=== PATIENT | male | born 1970 | race Caucasian/White ===

== ENCOUNTER 2016-06-17 01:37 | Emergency (ER) | payer OTHER | END 2016-06-17 03:30 | disposition left against medical advice (07) | LOC: ER1 01:37 | DX: R05 Cough (principal); M79.1 Myalgia; I10 Essential (primary) hypertension; E11.9 Type 2 diabetes mellitus without complications; Z85.89 Personal history of malignant neoplasm of other organs and systems; Z79.84 Long term (current) use of oral hypoglycemic drugs; Z79.4 Long term (current) use of insulin; Z79.899 Other long term (current) drug therapy | CPT/HCPCS: 99283 ==

== ENCOUNTER → 2016-09-07 | Outpatient (CLI) | payer OTHER | LOC: RAD 16:46 | DX: J18.8 Other pneumonia, unspecified organism (principal) | CPT/HCPCS: 71020 ==

== ENCOUNTER 2016-09-18 16:04 | Emergency (ER) | payer OTHER ==
[2016-09-18 18:51] LABS: HEMOGLOBIN 12.5 gm/dl (14.0-17.5); RED BLOOD COUNT 3.73 M/UL (4.20-5.50); WHITE BLOOD COUNT 9.7 K/UL (4.5-11.0)
== END 2016-09-18 21:15 | disposition home or self-care (01) ==
LOC: ER1 16:04
PROVIDERS: Family Medicine
DX: R20.0 Anesthesia of skin (principal); E11.649 Type 2 diabetes mellitus with hypoglycemia without coma; Z79.84 Long term (current) use of oral hypoglycemic drugs; Z79.899 Other long term (current) drug therapy
CPT/HCPCS: 36415; 70450; 71010; 80053; 82550; 82553; 82962; 83874; 84484; 85025; 93005; 99284

== ENCOUNTER 2020-04-20 16:06 | Emergency (ER) | payer OTHER ==
[~2020-04-20 16:06] MED LIST: ALPRAZOLAM0.5 MG PO; ARTANE 2MG TABLE2 MG PO; ASPIR 8181 MG PO; AUGMENTIN 875-1 EACH PO; COMBIVENT0.074 GM/I INH; DEXILANT60 MG PO; GLUCOTROL 10 MG10 MG PO; K-DUR TAB 10 M10 MEQ PO; LASIX40 MG PO; LEVEMIR100 UNIT/1 SQ; LOPRESSOR 25 MG25 MG PO; NEURONTIN 400400 MG PO; NEURONTIN400 MG PO; NEXIUM40 MG PO; PLETAL 100 MG100 MG PO; PREDNISONE 50 M50 MG PO; PRINIVIL10 MG PO; ROXICODONE TAB 55 MG PO; SYNTHROID75 MCG PO; TESSALON PERLE100 MG PO; TRESIBA FL100 UNIT/1 SQ; TRICOR145 MG PO; VIBRAMYCIN100 MG PO; VITAMIN D350000 UNIT PO; ZANTAC150 MG PO; ZOCOR80 MG PO; ZOFRAN4 MG PO
[2020-04-20 17:48] LABS: HEMOGLOBIN 14.1 gm/dl (14.0-17.5); RED BLOOD COUNT 4.03 M/UL (4.20-5.50)
[2020-04-20 18:25] LABS: BUN/CREATININE RATIO 13 (0-10)
[2020-04-20] MEDS ORDERED: AMOXICILLIN500 M1 PO (19:44)
[2020-04-20] MEDS ORDERED: ZITHROMAX250 MG PO (19:44)
[2020-04-20] MEDS ORDERED: PREDNISONE 20 M20 MG PO (19:44)
== END 2020-04-20 20:09 | disposition home or self-care (01) ==
LOC: ER1 16:06
PROVIDERS: Emergency Medicine
DX: J18.9 Pneumonia, unspecified organism (principal); J44.9 Chronic obstructive pulmonary disease, unspecified; I50.9 Heart failure, unspecified; Z20.822 Contact with and (suspected) exposure to COVID-19
CPT/HCPCS: 71045; 80053; 82550; 82553; 83874; 83880; 84484; 85025; 93005; 96374; 99285; J1100; U0002

== ENCOUNTER 2020-04-29 20:16 | Emergency (ER) | payer OTHER ==
[~2020-04-29 20:16] MED LIST changes: +AMOXICILLIN500 M1 PO; +PREDNISONE 20 M20 MG PO; +ZITHROMAX250 MG PO
== END 2020-04-29 22:15 | disposition left against medical advice (07) ==
LOC: ER1 20:16
DX: R05 Cough (principal); R09.89 Other specified symptoms and signs involving the circulatory and respiratory systems; Z53.21 Procedure and treatment not carried out due to patient leaving prior to being seen by health care provider

== ENCOUNTER 2020-05-30 01:31 | Emergency (ER) | payer OTHER ==
[2020-05-30 02:16] LABS: HEMOGLOBIN 15.9 gm/dl (14.0-17.5); RED BLOOD COUNT 4.62 M/UL (4.20-5.50); WHITE BLOOD COUNT 11.8 K/UL (4.5-11.0)
== END 2020-05-30 06:55 | disposition home or self-care (01) ==
LOC: ER1 01:31
PROVIDERS: Family Medicine
DX: E86.0 Dehydration (principal); M54.2 Cervicalgia; I73.9 Peripheral vascular disease, unspecified; Z85.89 Personal history of malignant neoplasm of other organs and systems
CPT/HCPCS: 36415; 70450; 71045; 72125; 80053; 85025; 93005; 96374; 96375; 99284; J2270; J2405

== ENCOUNTER 2020-06-26 21:48 | Emergency (ER) | payer OTHER | END 2020-06-27 01:36 | disposition home or self-care (01) | LOC: ER1 21:48 | DX: H10.33 Unspecified acute conjunctivitis, bilateral (principal); E11.9 Type 2 diabetes mellitus without complications; I10 Essential (primary) hypertension; E78.5 Hyperlipidemia, unspecified; F17.210 Nicotine dependence, cigarettes, uncomplicated; Z23 Encounter for immunization | CPT/HCPCS: 90471; 90715; 99282 ==

== ENCOUNTER 2020-07-29 23:33 | Emergency (ER) | payer OTHER | END 2020-07-30 02:50 | disposition home or self-care (01) | LOC: ER1 23:33 | DX: Z20.822 Contact with and (suspected) exposure to COVID-19 (principal); I25.10 Atherosclerotic heart disease of native coronary artery without angina pectoris; J44.9 Chronic obstructive pulmonary disease, unspecified; F17.210 Nicotine dependence, cigarettes, uncomplicated; E78.5 Hyperlipidemia, unspecified; Z90.89 Acquired absence of other organs | CPT/HCPCS: 99283; U0002 ==

== ENCOUNTER 2020-08-20 02:53 | Emergency (ER) | payer OTHER ==
[2020-08-20] MEDS ORDERED: CEPHALEXIN500 MG PO (06:13)
== END 2020-08-20 06:52 | disposition home or self-care (01) ==
LOC: ER1 02:53
DX: S90.414A Abrasion, right lesser toe(s), initial encounter (principal); I10 Essential (primary) hypertension; E11.9 Type 2 diabetes mellitus without complications; I25.10 Atherosclerotic heart disease of native coronary artery without angina pectoris; Z90.89 Acquired absence of other organs; Z79.01 Long term (current) use of anticoagulants; F17.210 Nicotine dependence, cigarettes, uncomplicated; X58.XXXA Exposure to other specified factors, initial encounter
CPT/HCPCS: 99283

== ENCOUNTER 2020-09-18 22:18 | Emergency (ER) | payer OTHER ==
[~2020-09-18 22:18] MED LIST changes: +CEPHALEXIN500 MG PO
[2020-09-18 23:46] LABS: HEMOGLOBIN 14.2 gm/dl (14.0-17.5); RED BLOOD COUNT 4.14 M/UL (4.20-5.50); WHITE BLOOD COUNT 9.4 K/UL (4.5-11.0)
[2020-09-19 00:08] LABS: BUN/CREATININE RATIO 18 (0-10)
[2020-09-19] MEDS ORDERED: PREDNISONE20 MG PO (03:30)
[2020-09-19] MEDS ORDERED: ZITHROMAX250 MG PO (03:30)
== END 2020-09-19 05:01 | disposition home or self-care (01) ==
LOC: ER1 22:18
PROVIDERS: Physician Assistant
DX: R05 Cough (principal); R06.00 Dyspnea, unspecified; E78.5 Hyperlipidemia, unspecified; E11.51 Type 2 diabetes mellitus with diabetic peripheral angiopathy without gangrene; I10 Essential (primary) hypertension; Z90.89 Acquired absence of other organs
CPT/HCPCS: 71045; 80053; 82550; 82553; 83874; 83880; 84484; 85025; 85610; 85730; 93005; 96374; 99285; J2930

== ENCOUNTER 2020-10-04 21:06 | Emergency (ER) | payer OTHER ==
[~2020-10-04 21:06] MED LIST changes: +PREDNISONE20 MG PO
[2020-10-04 21:27] LABS: HEMOGLOBIN 14.4 gm/dl (14.0-17.5); RED BLOOD COUNT 4.19 M/UL (4.20-5.50); WHITE BLOOD COUNT 11.6 K/UL (4.5-11.0)
[2020-10-04 22:00] LABS: BUN/CREATININE RATIO 17 (0-10)
== END 2020-10-04 23:01 | disposition short-term general hospital (02) ==
LOC: ER1 21:06
PROVIDERS: Emergency Medicine
DX: I63.9 Cerebral infarction, unspecified (principal); R29.705 NIHSS score 5; I10 Essential (primary) hypertension; E11.9 Type 2 diabetes mellitus without complications; J44.9 Chronic obstructive pulmonary disease, unspecified; F17.200 Nicotine dependence, unspecified, uncomplicated; Z20.822 Contact with and (suspected) exposure to COVID-19
CPT/HCPCS: 70450; 70496; 70498; 71045; 80053; 81001; 82550; 82553; 82962; 83690; 83735; 83874; 83880; 84484; 85025; 85610; 85730; 93005; 96374; 99285; J2997; Q9967; U0002

== ENCOUNTER 2020-11-13 22:16 | Emergency (ER) | payer OTHER | END 2020-11-14 06:36 | disposition home or self-care (01) | LOC: ER1 22:16 | DX: K94.23 Gastrostomy malfunction (principal); J44.9 Chronic obstructive pulmonary disease, unspecified; I25.10 Atherosclerotic heart disease of native coronary artery without angina pectoris; I25.2 Old myocardial infarction; Z95.1 Presence of aortocoronary bypass graft | CPT/HCPCS: 43752; 71045; 99283 ==

== ENCOUNTER 2020-11-18 14:27 | Emergency (ER) | payer OTHER ==
[~2020-11-18] VITALS: Ht 175.3 cm; Wt 76.2 kg
[2020-11-18 15:01] LABS: HEMOGLOBIN 9.2 gm/dl (14.0-17.5); RED BLOOD COUNT 2.91 M/UL (4.20-5.50); WHITE BLOOD COUNT 11.7 K/UL (4.5-11.0)
[2020-11-18 15:28] LABS: BUN/CREATININE RATIO 19 (0-10)
== END 2020-11-18 21:32 | disposition home or self-care (01) ==
LOC: ER1 14:27
DX: J95.89 Other postprocedural complications and disorders of respiratory system, not elsewhere classified (principal); Z20.822 Contact with and (suspected) exposure to COVID-19
CPT/HCPCS: 36600; 71045; 80053; 82550; 82553; 82803; 83874; 84484; 85025; 87040; 93005; 96374; 96375; 96376; 99285; J3370; J7030; J7050; J7070; Q9967; U0002

== ENCOUNTER → 2021-01-03 | Outpatient (CLI) | payer OTHER | LOC: RAD 17:42 | DX: J40 Bronchitis, not specified as acute or chronic (principal); R09.89 Other specified symptoms and signs involving the circulatory and respiratory systems | CPT/HCPCS: 71046 ==

== ENCOUNTER 2021-04-21 18:33 | Emergency (ER) | payer OTHER | END 2021-04-21 20:50 | disposition home or self-care (01) | LOC: ER1 18:33 | DX: B34.9 Viral infection, unspecified (principal); Z20.822 Contact with and (suspected) exposure to COVID-19; I11.9 Hypertensive heart disease without heart failure; E78.5 Hyperlipidemia, unspecified; J44.9 Chronic obstructive pulmonary disease, unspecified; Z90.49 Acquired absence of other specified parts of digestive tract; E11.9 Type 2 diabetes mellitus without complications; Z87.891 Personal history of nicotine dependence | CPT/HCPCS: 0240U; 99283 ==

== ENCOUNTER 2021-07-16 14:56 | Emergency (ER) | payer OTHER ==
[2021-07-16] MEDS ORDERED: CYCLOBENZAPRINE10 MG PO (19:46)
== END 2021-07-16 20:00 | disposition home or self-care (01) ==
LOC: ER1 14:56
DX: S16.1XXA Strain of muscle, fascia and tendon at neck level, initial encounter (principal); S20.214A Contusion of middle front wall of thorax, initial encounter; R51.9 Headache, unspecified; S29.012A Strain of muscle and tendon of back wall of thorax, initial encounter; E11.9 Type 2 diabetes mellitus without complications; I10 Essential (primary) hypertension; F17.210 Nicotine dependence, cigarettes, uncomplicated; Z79.82 Long term (current) use of aspirin; V43.52XA Car driver injured in collision with other type car in traffic accident, initial encounter
CPT/HCPCS: 70450; 71046; 72125; 72128; 99284

== ENCOUNTER → 2021-08-30 | Outpatient (CLI) | payer OTHER ==
[~2021-08-30] MED LIST changes: +CYCLOBENZAPRINE10 MG PO
== END ==
LOC: RAD 15:12
DX: M27.2 Inflammatory conditions of jaws (principal)
CPT/HCPCS: 71046; 93005

== ENCOUNTER → 2021-08-30 | Outpatient (CLI) | payer OTHER | LOC: WCC 08:21 | DX: M90.58 Osteonecrosis in diseases classified elsewhere, other site (principal); M27.2 Inflammatory conditions of jaws; C09.9 Malignant neoplasm of tonsil, unspecified; E11.622 Type 2 diabetes mellitus with other skin ulcer; H92.01 Otalgia, right ear; J44.9 Chronic obstructive pulmonary disease, unspecified; I25.10 Atherosclerotic heart disease of native coronary artery without angina pectoris; I73.9 Peripheral vascular disease, unspecified; H61.23 Impacted cerumen, bilateral; E11.22 Type 2 diabetes mellitus with diabetic chronic kidney disease; I12.9 Hypertensive chronic kidney disease with stage 1 through stage 4 chronic kidney disease, or unspecified chronic kidney disease; N18.30 Chronic kidney disease, stage 3 unspecified; Z79.4 Long term (current) use of insulin; Z72.0 Tobacco use | CPT/HCPCS: G0463 ==

== ENCOUNTER → 2021-09-03 | Outpatient (CLI) | payer OTHER | LOC: EMI 09-02 14:30 → MRI 09:00 | DX: S39.012A Strain of muscle, fascia and tendon of lower back, initial encounter (principal); M54.6 Pain in thoracic spine; M51.34 Other intervertebral disc degeneration, thoracic region; M51.36 Other intervertebral disc degeneration, lumbar region; M51.37 Other intervertebral disc degeneration, lumbosacral region | CPT/HCPCS: 72146; 72148 ==

== ENCOUNTER 2021-12-01 20:23 | Emergency (ER) | payer OTHER ==
[2021-12-01 22:06] LABS: HEMOGLOBIN 12.9 gm/dl (14.0-17.5); RED BLOOD COUNT 3.84 M/UL (4.20-5.50); WHITE BLOOD COUNT 11.1 K/UL (4.5-11.0)
[2021-12-01 22:37] LABS: BUN/CREATININE RATIO 19 (0-10)
== END 2021-12-02 03:25 | disposition home or self-care (01) ==
LOC: ER1 20:23
PROVIDERS: Physician Assistant
DX: R42 Dizziness and giddiness (principal); R55 Syncope and collapse; R53.83 Other fatigue; R53.1 Weakness; I11.9 Hypertensive heart disease without heart failure; E11.9 Type 2 diabetes mellitus without complications; Z79.82 Long term (current) use of aspirin; Z79.02 Long term (current) use of antithrombotics/antiplatelets; Z79.4 Long term (current) use of insulin; Z20.822 Contact with and (suspected) exposure to COVID-19
CPT/HCPCS: 0240U; 70450; 71045; 80053; 82550; 82553; 83880; 84484; 85025; 85610; 85730; 93005; 99284